=== PATIENT | female | born 1960 | race Caucasian/White ===

== ENCOUNTER 2018-01-06 10:56 | Inpatient (IN) | payer BC ==
[~2018-01-06] VITALS: Ht 167.6 cm; Wt 92.3 kg
[~2018-01-06 10:56] MED LIST: ALBU90AE INH; ASPI-621 PO; ATOR-2 PO; EZET10TA18 PO; GEMF600T3 PO; LOSA50TA6 PO; METO25TA35 PO; OXYB5TAB7 PO; TICA90TA PO
[2018-01-06] MEDS ORDERED: ASPIRIN 81 MG TABLET CHEW PO ONE (12:00)
[2018-01-06] MEDS ORDERED: SODIUM CHLORIDE FLUSH 10ML SYR IVF ONE (12:00)
[2018-01-06 12:21] LABS: BASOPHILS # (AUTO) 0.01 x10^3/uL (0-0.1); BASOPHILS % (AUTO) 0 % (0-1); EOSINOPHILS # (AUTO) 0.15 x10^3/uL (0-0.4); EOSINOPHILS % (AUTO) 2 % (1-7); LYMPHOCYTES # (AUTO) 2.17 x10^3/uL (1-3.4); LYMPHOCYTES % (AUTO) 28 % (22-44); MD NO; MEAN CORPUSCULAR HEMOGLOBIN 29.9 pg (27.0-34.8); MEAN CORPUSCULAR HGB CONC 32.9 g/dL (32.4-35.8); MEAN CORPUSCULAR VOLUME 90.8 fL (80-100); MEAN PLATELET VOLUME 10.8 fL (7.4-10.4); MONOCYTES # (AUTO) 0.42 x10^3/uL (0.2-0.8); MONOCYTES % (AUTO) 5 % (2-9); NEUTROPHILS # (AUTO) 5.04 x10^3/uL (1.8-6.8); NEUTROPHILS % (AUTO) 65 % (42-75); PLATELET COUNT 339 x10^3/uL (130-400); RED BLOOD COUNT 4.57 x10^6/uL (3.82-5.3)
[2018-01-06 12:28] LABS: INTERNATIONAL NORMALIZED RATIO 1.01 (0.93-1.1); PROTHROMBIN TIME 10.5 Seconds (9.6-11.5)
[2018-01-06] MEDS ORDERED: CARV6.2512 PO (12:32)
[2018-01-06] MEDS ORDERED: CLOP75TA52 PO (12:32)
[2018-01-06 12:34] LABS: ALBUMIN 4.4 g/dL (3.4-5.0); ANION GAP 11 mmol/L (5-15); CALCIUM 9.6 mg/dL (8.5-10.1); CHLORIDE 106 mmol/L (98-107)
[2018-01-06 12:38] LABS: CREATININE 0.78 mg/dL (0.55-1.02); TROPONIN I < 0.015 ng/mL (0.000-0.045)
[2018-01-06] MEDS ORDERED: FENTANYL PF 100 MCG/2ML ONE (13:20)
[2018-01-06] MEDS ORDERED: LIDOCAINE 2%, 20ML ONE (13:20)
[2018-01-06] MEDS ORDERED: HEPARIN 1,000 UNITS/ML, 10ML ONE (13:20)
[2018-01-06] MEDS ORDERED: MIDAZOLAM 1 MG/ML, 2ML ONE ×2 (13:20→13:45)
[2018-01-06] MEDS ORDERED: DIPHENHYDRAMINE 50 MG/ML, 1ML ONE (13:22)
[2018-01-06] MEDS ORDERED: VERAPAMIL 2.5 MG/ML, 2ML ONE (13:29)
[2018-01-06] MEDS ORDERED: TICAGRELOR 90 MG TABLET ONE (14:00)
[2018-01-06] MEDS ORDERED: BIVALIRUDIN 250 MG ONE ×2 (14:00→14:27)
[2018-01-06] MEDS ORDERED: BIVALIRUDIN 250 MG in DEXTROSE 5% 50 ML IV SCH (14:36)
[2018-01-06 14:45] VITALS: BP 121/73
[2018-01-06] MEDS ORDERED: ZOLPIDEM 5MG TABLET PO PRN (15:00)
[2018-01-06 19:04] VITALS: BP 125/74
[2018-01-06] MEDS ORDERED: PNEUMOCOCCAL 23 VACCINE IM-VACC ONE (20:00)
[2018-01-06] MEDS ORDERED: ATORVASTATIN 80 MG TABLET PO SCH (21:00)
[2018-01-06] MEDS: GEMFIBROZIL 600 MG TABLET PO SCH (21:56)
[2018-01-06] MEDS: LOSARTAN 50MG TABLET PO SCH (21:57)
[2018-01-06] MEDS: TICAGRELOR 90 MG TABLET PO SCH (21:57)
[2018-01-06] MEDS: CARVEDILOL 6.25 MG TABLET PO SCH (21:58)
[2018-01-06] MEDS: OXYBUTYNIN CHLORIDE 5 MG TABLET PO SCH (21:58)
[2018-01-07 00:58] VITALS: BP 133/76
[2018-01-07 06:35] VITALS: BP 117/74
[2018-01-07] MEDS ORDERED: TICA90TA PO (07:56)
[2018-01-07] MEDS: LOSARTAN 50MG TABLET PO SCH (08:42)
[2018-01-07] MEDS: CARVEDILOL 6.25 MG TABLET PO SCH (08:43)
[2018-01-07] MEDS: GEMFIBROZIL 600 MG TABLET PO SCH (08:43)
[2018-01-07] MEDS: TICAGRELOR 90 MG TABLET PO SCH (08:43)
[2018-01-07] MEDS: OXYBUTYNIN CHLORIDE 5 MG TABLET PO SCH (08:47)
[2018-01-07] MEDS ORDERED: ASPIRIN 81 MG TABLET EC PO SCH (09:00)
[2018-01-07] MEDS ORDERED: EZETIMIBE 10 MG TABLET PO SCH (09:00)
== END 2018-01-07 10:00 | disposition home or self-care (01) | DRG 247 ==
LOC: ED 11:55 → EDIP 11:56 → ED 12:15 → 5SO 14:36 → DCLOUNGE 01-07 09:46
PROVIDERS: ADMIT Internal Medicine Cardiovascular Disease; ATTEND Internal Medicine Cardiovascular Disease
PROC: 027034Z Dilation of Coronary Artery, One Artery with Drug-eluting Intraluminal Device, Percutaneous Approach (ICD-10-PCS; principal; 2018-01-06)
PROC: 4A023N7 Measurement of Cardiac Sampling and Pressure, Left Heart, Percutaneous Approach (ICD-10-PCS; 2018-01-06)
PROC: B2111ZZ Fluoroscopy of Multiple Coronary Arteries using Low Osmolar Contrast (ICD-10-PCS; 2018-01-06)
PROC: B2151ZZ Fluoroscopy of Left Heart using Low Osmolar Contrast (ICD-10-PCS; 2018-01-06)
DX: I25.110 Atherosclerotic heart disease of native coronary artery with unstable angina pectoris (principal); E11.9 Type 2 diabetes mellitus without complications; E78.5 Hyperlipidemia, unspecified; I10 Essential (primary) hypertension; I25.2 Old myocardial infarction; Z79.82 Long term (current) use of aspirin; Z95.5 Presence of coronary angioplasty implant and graft
CPT/HCPCS: 36415; 71045; 80048; 82040; 84484; 85025; 85610; 90732; 93005; 93458; 99156; 99285; C1894; C9600; J0583; J1644; J2250; J3010; J3490; C1725; C1769; C1874; C1887; J1200; Q9967

== ENCOUNTER 2018-05-23 18:12 | Observation (INO) | payer BC ==
[~2018-05-23] VITALS: Ht 165.1 cm; Wt 85.3 kg
[~2018-05-23 18:12] MED LIST changes: +CARV6.2512 PO; +CLOP75TA52 PO
[2018-05-23] MEDS ORDERED: GEMF600T3 PO (18:32)
[2018-05-23] MEDS ORDERED: ATOR-2 PO (18:32)
[2018-05-23] MEDS ORDERED: VALS80TA3 PO (18:32)
[2018-05-23] MEDS ORDERED: TICA90TA PO (18:32)
[2018-05-23] MEDS ORDERED: AMLO2.5T PO (18:32)
[2018-05-23] MEDS ORDERED: ASPI-496 PO (18:32)
[2018-05-23] MEDS ORDERED: EZET10TA18 PO (18:32)
[2018-05-23] MEDS ORDERED: OXYB10TA6 PO (18:32)
[2018-05-23] MEDS ORDERED: CARV6.252 PO (18:32)
[2018-05-23 19:04] LABS: BASOPHILS # (AUTO) 0.05 x10^3/uL (0-0.1); BASOPHILS % (AUTO) 1 % (0-1); EOSINOPHILS # (AUTO) 0.32 x10^3/uL (0-0.4); EOSINOPHILS % (AUTO) 3 % (1-7); LYMPHOCYTES # (AUTO) 2.01 x10^3/uL (1-3.4); LYMPHOCYTES % (AUTO) 21 % (22-44); MD NO; MEAN CORPUSCULAR HEMOGLOBIN 31.4 pg (27.0-34.8); MEAN CORPUSCULAR HGB CONC 33.8 g/dL (32.4-35.8); MEAN CORPUSCULAR VOLUME 92.9 fL (80-100); MEAN PLATELET VOLUME 10.2 fL (7.4-10.4); MONOCYTES # (AUTO) 0.55 x10^3/uL (0.2-0.8); MONOCYTES % (AUTO) 6 % (2-9); NEUTROPHILS # (AUTO) 6.78 x10^3/uL (1.8-6.8); NEUTROPHILS % (AUTO) 70 % (42-75); PLATELET COUNT 397 x10^3/uL (130-400); RED BLOOD COUNT 4.37 x10^6/uL (3.82-5.3)
[2018-05-23 19:11] LABS: ALBUMIN 3.8 g/dL (3.4-5.0); ANION GAP 8 mmol/L (5-15); CALCIUM 9.1 mg/dL (8.5-10.1); CHLORIDE 109 mmol/L (98-107); CREATININE 0.82 mg/dL (0.55-1.02)
[2018-05-23 19:15] LABS: TROPONIN I < 0.015 ng/mL (0.000-0.045)
[2018-05-23 20:00] VITALS: BP 138/74
[2018-05-23] MEDS ORDERED: ONDANSETRON ODT 4 MG PO PRN (20:00)
[2018-05-23] MEDS ORDERED: ONDANSETRON 2MG/ML, 2ML IVPush PRN (20:00)
[2018-05-23] MEDS ORDERED: BISACODYL 10 MG SUPP PR PRN (20:00)
[2018-05-23] MEDS ORDERED: ACETAMINOPHEN 325 MG TABLET PO PRN (20:00)
[2018-05-23] MEDS ORDERED: POLYETHYLENE GLYCOL 17 GM PACKET PO PRN (20:00)
[2018-05-23] MEDS ORDERED: NITROGLYCERIN 0.4 MG BOTTLE (25 TABS) SL PRN (20:00)
[2018-05-23] MEDS ORDERED: DOCUSATE 100 MG CAPSULE PO PRN (20:00)
[2018-05-23] MEDS ORDERED: morphine SULFATE 10 MG/ML, 1ML IVPush PRN (20:00)
[2018-05-23] MEDS ORDERED: ENALAPRILAT 1.25 MG/ML, 2ML IVPush PRN (20:00)
[2018-05-23 20:30] LABS: HEMOGLOBIN A1C 7.1 % (4.2-6.3)
[2018-05-23] MEDS ORDERED: AMLODIPINE 2.5 MG TABLET PO SCH (21:00)
[2018-05-23] MEDS ORDERED: ATORVASTATIN 80 MG TABLET PO SCH (21:00)
[2018-05-23] MEDS: OXYBUTYNIN CHLORIDE 5 MG TABLET PO SCH (22:23)
[2018-05-23] MEDS: CARVEDILOL 6.25 MG TABLET PO SCH (22:24)
[2018-05-23] MEDS: TICAGRELOR 90 MG TABLET PO SCH (22:24)
[2018-05-23] MEDS: GEMFIBROZIL 600 MG TABLET PO SCH (22:24)
[2018-05-23 22:29] VITALS: BP 138/74
[2018-05-24 01:36] LABS: TROPONIN I < 0.015 ng/mL (0.000-0.045)
[2018-05-24 01:51] VITALS: BP 109/66
[2018-05-24 05:07] LABS: BASOPHILS # (AUTO) 0.05 x10^3/uL (0-0.1); BASOPHILS % (AUTO) 1 % (0-1); EOSINOPHILS # (AUTO) 0.35 x10^3/uL (0-0.4); EOSINOPHILS % (AUTO) 4 % (1-7); LYMPHOCYTES # (AUTO) 2.35 x10^3/uL (1-3.4); LYMPHOCYTES % (AUTO) 26 % (22-44); MD NO; MEAN CORPUSCULAR HEMOGLOBIN 30.2 pg (27.0-34.8); MEAN CORPUSCULAR HGB CONC 32.8 g/dL (32.4-35.8); MEAN PLATELET VOLUME 10.7 fL (7.4-10.4); MONOCYTES % (AUTO) 7 % (2-9); NEUTROPHILS # (AUTO) 5.55 x10^3/uL (1.8-6.8); NEUTROPHILS % (AUTO) 62 % (42-75); PLATELET COUNT 341 x10^3/uL (130-400); RED BLOOD COUNT 4.15 x10^6/uL (3.82-5.3); RED CELL DISTRIBUTION WIDTH 13.9 % (9.6-15.2)
[2018-05-24 05:17] LABS: CHLORIDE 108 mmol/L (98-107)
[2018-05-24 05:37] LABS: ANION GAP 8 mmol/L (5-15); CALCIUM 8.7 mg/dL (8.5-10.1); CHOL/HDL RATIO 3.5; CHOLESTEROL, TOTAL 134 mg/dL (140-239); CREATININE 0.83 mg/dL (0.55-1.02); HDL CHOL % 28 % (28-40); HDL CHOLESTEROL (DIRECT) 38 mg/dL (40-60); LDL CHOLESTEROL,CALCULATED 75 mg/dL (54-169); TRIGLYCERIDES 105 mg/dL (50-200); VLDL CHOLESTEROL 21 mg/dL (0-25)
[2018-05-24 08:38] VITALS: BP 134/74
[2018-05-24] MEDS ORDERED: EZETIMIBE 10 MG TABLET PO SCH (09:00)
[2018-05-24] MEDS ORDERED: VALSARTAN 80 MG TABLET PO SCH (09:00)
[2018-05-24] MEDS ORDERED: ASPIRIN 81 MG TABLET EC PO SCH (09:00)
[2018-05-24] MEDS: OXYBUTYNIN CHLORIDE 5 MG TABLET PO SCH (10:23)
[2018-05-24] MEDS: GEMFIBROZIL 600 MG TABLET PO SCH (10:23)
[2018-05-24] MEDS: CARVEDILOL 6.25 MG TABLET PO SCH (10:23)
[2018-05-24] MEDS: TICAGRELOR 90 MG TABLET PO SCH (10:24)
[2018-05-24] MEDS ORDERED: NITR0.4T SL (13:42)
== END 2018-05-24 16:05 | disposition home or self-care (01) ==
LOC: ED 18:51 → INTOOBSV 19:06 → EDIP 19:06 → 5SO 20:04
PROVIDERS: ADMIT Internal Medicine; ATTEND Internal Medicine
DX: R07.9 Chest pain, unspecified (principal); I10 Essential (primary) hypertension; I25.10 Atherosclerotic heart disease of native coronary artery without angina pectoris; E78.5 Hyperlipidemia, unspecified; E11.9 Type 2 diabetes mellitus without complications; I51.7 Cardiomegaly; I25.2 Old myocardial infarction; N32.81 Overactive bladder; Z83.3 Family history of diabetes mellitus; Z90.710 Acquired absence of both cervix and uterus; Z95.5 Presence of coronary angioplasty implant and graft
CPT/HCPCS: 36415; 78452; 80048; 80061; 82040; 83036; 83735; 84443; 84484; 85025; 93005; 93017; 93306; 99285; A9502; C9898; G0378